=== PATIENT | female | born 1980 | race Caucasian/White ===

== ENCOUNTER 2018-01-24 16:07 | Emergency (ER) | payer OTHER ==
[~2018-01-24] VITALS: Ht 167.6 cm; Wt 64.9 kg
[~2018-01-24 16:07] MED LIST: ACETAMINOPHEN-1 EAC1 PO; ACYCLOVIR 200200 MG PO; ADVIL100 M2 PO; AMBIEN 5 MG TABL5 MG PO; AMOXICILLIN500 M1 PO; BACTRIM DS TAB1 EACH PO; BACTROBAN CREAM30 G1 TOP; BUTALB-APAP-CA1 EACH; CEPHALEXIN 500500 M1 PO; FIORICET 50-321 EACH PO; FLEXERIL PO; IBUPROFEN 200200 M1 PO; IBUPROFEN 800800 M1 PO; IMITREX 25 MG T25 M1 PO; IMITREX 25 MG T25 MG PO; IMITREX 50 MG T50 MG; KEFLEX500 MG PO; LAMICTAL150 MG PO; MEDROLDOSEPACK PO; MOBIC7.5 M1 PO; NAPROSYN500 MG PO; NORCO 10-325 T1 EACH; NORCO 5-325 TA1 EACH PO; NORTRIPTYLINE H10 M1 GT; PENICILLIN V P500 MG PO; PERCOCET 5-3251 EACH PO; PHENERGAN25 M1 RC; PHENERGAN50 MG PO; PREDNISONE50 MG PO; PRILOSEC 20 MG20 MG; PROTONIX 20 MG20 M1 PO; PROZAC 10 MG CA10 M1 PO; ROBAXIN 750 MG750 M1 PO; ROBAXIN500 MG PO; SEPTRA 80-4001 EACH PO; SYNTHROID50 MCG; TOPAMAX100 MG PO; TORADOL 10 MG T10 MG PO; TRAMADOL 50 MG50 MG PO; WELLBUTRIN XL300 MG PO; XANAX 0.25 MG0.25 MG; XANAX XR0.5 MG; ZANTAC 150MG T150 M1 PO; ZOFRAN ODT4 MG PO; ZOFRAN4 MG PO; ZOLOFT100 MG
[2018-01-24] MEDS ORDERED: VICODIN 5-3001 EACH PO (16:19)
[2018-01-24] MEDS ORDERED: TRAMADOL 50 MG50 MG PO (16:19)
[2018-01-24 17:22] VITALS: BP 98/52
== END 2018-01-24 17:24 | disposition home or self-care (01) ==
LOC: M.ERS 16:07
DX: M25.551 Pain in right hip (principal); K21.9 Gastro-esophageal reflux disease without esophagitis; G43.909 Migraine, unspecified, not intractable, without status migrainosus; F17.210 Nicotine dependence, cigarettes, uncomplicated; Z88.6 Allergy status to analgesic agent; Z88.5 Allergy status to narcotic agent; Z88.8 Allergy status to other drugs, medicaments and biological substances; Z90.49 Acquired absence of other specified parts of digestive tract

== ENCOUNTER 2018-05-04 19:02 | Emergency (ER) | payer OTHER ==
[~2018-05-04] VITALS: Ht 152.4 cm; Wt 66.7 kg
[~2018-05-04 19:02] MED LIST changes: +VICODIN 5-3001 EACH PO
[2018-05-04] MEDS ORDERED: IMITREX100 MG (19:11)
[2018-05-04 19:43] LABS: ABSOLUTE BASOPHILS 0.1 thou/uL (0.0-0.2); ABSOLUTE EOSINOPHILS 0.2 thou/uL (0.0-0.7); ABSOLUTE LYMPHOCYTES 2.8 thou/uL (0.8-5.3); ABSOLUTE MONOCYTES 0.6 thou/uL (0.0-1.2); ABSOLUTE NEUTROPHILS 4.2 thou/uL (1.6-8.1); BASOPHILS 0.7 %; EOSINOPHILS 2.2 %; HEMATOCRIT 38.6 % (37.0-47.0); HEMOGLOBIN 12.9 gm/dL (12.0-15.0); MCH 28.6 pg (26.0-34.0); MCHC 33.5 g/dL (28.0-37.0); MCV 85.4 fL (80.0-100.0); MONOCYTES 7.6 %; MPV 8.4 fl. (7.2-11.1); NUCLEATED RBCS 0 /100WBC; PLATELET COUNT* 289 thou/uL (150-400); POLYS 53.5 %; RBC 4.52 mil/uL (4.20-5.00); RDW-CV 14.1 % (10.5-14.5); WBC 7.8 thou/uL (4.0-11.0)
[2018-05-04 19:56] LABS: CALCIUM 8.6 mg/dL (8.5-10.1); CREATININE 0.8 mg/dL (0.6-1.3); POTASSIUM 3.6 mmol/L (3.5-5.1)
[2018-05-04 20:01] LABS: TOTAL BILIRUBIN 0.2 mg/dL (<0.1-1.0); TOTAL PROTEIN 7.6 g/dL (6.4-8.2)
[2018-05-04 20:03] LABS: URINE BILIRUBIN NEGATIVE (Negative); URINE BLOOD 3+ (Negative); URINE CLARITY CLEAR; URINE COLOR YELLOW; URINE GLUCOSE-RANDOM NEGATIVE (Negative); URINE KETONES NEGATIVE (Negative); URINE LEUKOCYTES-REFLEX NEGATIVE (Negative); URINE NITRITE-REFLEX NEGATIVE (Negative); URINE PROTEIN NEGATIVE (Negative); URINE UROBILINOGEN 0.2 E.U./dl (0.2-1.0)
[2018-05-04 20:11] LABS: CASTS None Seen /LPF (None Seen); MUCUS None Seen strn/LPF (None Seen); SQUAMOUS 0-3 Few /LPF (0-3)
[2018-05-04 20:12] LABS: BACTERIA-REFLEX None Seen /HPF (None Seen); CRYSTALS None Seen /LPF (None Seen); URINE WBC-REFLEX None Seen /HPF (0-5)
[2018-05-04] MEDS ORDERED: ZOFRAN ODT4 MG PO (20:58)
[2018-05-04 21:07] VITALS: BP 115/47
== END 2018-05-04 21:07 | disposition home or self-care (01) ==
LOC: M.ERS 19:02
PROVIDERS: Physician Assistant
DX: R10.31 Right lower quadrant pain (principal); R11.2 Nausea with vomiting, unspecified; K21.9 Gastro-esophageal reflux disease without esophagitis; Z90.49 Acquired absence of other specified parts of digestive tract; G43.909 Migraine, unspecified, not intractable, without status migrainosus; F17.210 Nicotine dependence, cigarettes, uncomplicated; Z88.5 Allergy status to narcotic agent; Z88.8 Allergy status to other drugs, medicaments and biological substances

== ENCOUNTER 2018-05-14 20:30 | Emergency (ER) | payer OTHER ==
[~2018-05-14] VITALS: Ht 167.6 cm; Wt 65.8 kg
[~2018-05-14 20:30] MED LIST changes: +IMITREX100 MG
[2018-05-14 22:23] VITALS: BP 115/64
== END 2018-05-14 22:24 | disposition home or self-care (01) ==
LOC: M.ERS 20:30
DX: K59.00 Constipation, unspecified (principal); K21.9 Gastro-esophageal reflux disease without esophagitis; G43.909 Migraine, unspecified, not intractable, without status migrainosus; Z90.49 Acquired absence of other specified parts of digestive tract

== ENCOUNTER 2018-10-08 17:35 | Emergency (ER) | payer OTHER ==
[~2018-10-08] VITALS: Ht 167.6 cm; Wt 65.8 kg
[2018-10-08] MEDS ORDERED: AMOXICILLIN 50500 MG PO (18:30)
[2018-10-08] MEDS ORDERED: NYSTATIN100000 UNI SW&SWALLOW (18:31)
[2018-10-08 18:45] VITALS: BP 110/70
== END 2018-10-08 18:46 | disposition home or self-care (01) ==
LOC: M.ERS 17:35
DX: J02.9 Acute pharyngitis, unspecified (principal); K21.9 Gastro-esophageal reflux disease without esophagitis; G43.909 Migraine, unspecified, not intractable, without status migrainosus; F17.210 Nicotine dependence, cigarettes, uncomplicated; Z88.6 Allergy status to analgesic agent; Z88.5 Allergy status to narcotic agent; Z90.49 Acquired absence of other specified parts of digestive tract; Z98.890 Other specified postprocedural states

== ENCOUNTER 2019-02-17 18:32 | Emergency (ER) | payer OTHER ==
[~2019-02-17] VITALS: Ht 167.6 cm; Wt 65.8 kg
[~2019-02-17 18:32] MED LIST changes: +AMOXICILLIN 50500 MG PO; +NYSTATIN100000 UNI SW&SWALLOW
[2019-02-17 18:57] LABS: URINE BILIRUBIN NEGATIVE (Negative); URINE BLOOD NEGATIVE (Negative); URINE CLARITY CLEAR; URINE COLOR YELLOW; URINE GLUCOSE-RANDOM NEGATIVE (Negative); URINE KETONES NEGATIVE (Negative); URINE LEUKOCYTES-REFLEX NEGATIVE (Negative); URINE NITRITE-REFLEX NEGATIVE (Negative); URINE PROTEIN NEGATIVE (Negative); URINE SPECIFIC GRAVITY <= 1.005 (1.005-1.030); URINE UROBILINOGEN 0.2 E.U./dl (0.2-1.0)
[2019-02-17 19:16] LABS: ABSOLUTE BASOPHILS 0.1 thou/uL (0.0-0.2); ABSOLUTE EOSINOPHILS 0.1 thou/uL (0.0-0.7); ABSOLUTE LYMPHOCYTES 2.9 thou/uL (0.8-5.3); ABSOLUTE MONOCYTES 0.8 thou/uL (0.0-1.2); ABSOLUTE NEUTROPHILS 5.1 thou/uL (1.6-8.1); BASOPHILS 0.7 %; EOSINOPHILS 1.2 %; HEMOGLOBIN 12.9 gm/dL (12.0-15.0); LYMPHOCYTES 32.6 %; MCH 28.1 pg (26.0-34.0); MCV 82.7 fL (80.0-100.0); MONOCYTES 9.2 %; MPV 8.7 fl. (7.2-11.1); NUCLEATED RBCS 0 /100WBC; PLATELET COUNT* 271 thou/uL (150-400); POLYS 56.3 %; RDW-CV 14.2 % (10.5-14.5)
[2019-02-17 19:23] LABS: CALCIUM 8.7 mg/dL (8.5-10.1); CREATININE 0.8 mg/dL (0.6-1.3); POTASSIUM 3.2 mmol/L (3.5-5.1)
[2019-02-17 19:27] LABS: ALBUMIN 3.9 g/dL (3.4-5.0); TOTAL BILIRUBIN 0.2 mg/dL (<0.1-1.0); TOTAL PROTEIN 7.7 g/dL (6.4-8.2)
[2019-02-17 20:50] VITALS: BP 109/81
== END 2019-02-17 20:51 | disposition home or self-care (01) ==
LOC: M.ERS 18:32
PROVIDERS: Nurse Practitioner Family
DX: E87.6 Hypokalemia (principal); R11.2 Nausea with vomiting, unspecified; R19.7 Diarrhea, unspecified; R07.81 Pleurodynia; K21.9 Gastro-esophageal reflux disease without esophagitis; G43.909 Migraine, unspecified, not intractable, without status migrainosus; F17.210 Nicotine dependence, cigarettes, uncomplicated; Z88.5 Allergy status to narcotic agent; Z88.8 Allergy status to other drugs, medicaments and biological substances; Z88.6 Allergy status to analgesic agent; Z90.49 Acquired absence of other specified parts of digestive tract; Z98.51 Tubal ligation status

== ENCOUNTER 2019-03-23 18:26 | Emergency (ER) | payer OTHER ==
[~2019-03-23] VITALS: Ht 170.2 cm; Wt 70.3 kg
[2019-03-23] MEDS ORDERED: BUTALB-APAP-CA1 EACH PO (19:40)
[2019-03-23 19:45] VITALS: BP 108/62
== END 2019-03-23 19:45 | disposition home or self-care (01) ==
LOC: M.ERS 18:26
DX: S06.0X0A Concussion without loss of consciousness, initial encounter (principal); K21.9 Gastro-esophageal reflux disease without esophagitis; G43.909 Migraine, unspecified, not intractable, without status migrainosus; F17.210 Nicotine dependence, cigarettes, uncomplicated; Z98.51 Tubal ligation status; Z90.49 Acquired absence of other specified parts of digestive tract; Z88.6 Allergy status to analgesic agent; W22.8XXA Striking against or struck by other objects, initial encounter; Y93.E8 Activity, other personal hygiene; Y92.89 Other specified places as the place of occurrence of the external cause; Y99.0 Civilian activity done for income or pay

== ENCOUNTER 2020-03-25 10:54 | Emergency (ER) | payer OTHER ==
[~2020-03-25] VITALS: Ht 167.6 cm; Wt 67.1 kg
[~2020-03-25 10:54] MED LIST changes: +BUTALB-APAP-CA1 EACH PO
[2020-03-25] MEDS ORDERED: WELLBUTRIN 75 M75 M1 PO (11:04)
[2020-03-25] MEDS ORDERED: NORCO 5-325 TA1 EAC2 PO (12:33)
[2020-03-25 12:41] VITALS: BP 116/68
== END 2020-03-25 12:42 | disposition home or self-care (01) ==
LOC: M.ERS 10:54
DX: S20.212A Contusion of left front wall of thorax, initial encounter (principal); K21.9 Gastro-esophageal reflux disease without esophagitis; G43.909 Migraine, unspecified, not intractable, without status migrainosus; F17.210 Nicotine dependence, cigarettes, uncomplicated; Z90.49 Acquired absence of other specified parts of digestive tract; Z88.5 Allergy status to narcotic agent; Z98.51 Tubal ligation status; W10.8XXA Fall (on) (from) other stairs and steps, initial encounter; Y93.89 Activity, other specified; Y92.89 Other specified places as the place of occurrence of the external cause; Y99.8 Other external cause status

== ENCOUNTER 2020-05-12 19:06 | Emergency (ER) | payer OTHER ==
[~2020-05-12] VITALS: Ht 170.2 cm; Wt 65.8 kg
[~2020-05-12 19:06] MED LIST changes: +NORCO 5-325 TA1 EAC2 PO; +WELLBUTRIN 75 M75 M1 PO
[2020-05-12] MEDS ORDERED: BOTOX100 UNIT IM (19:20)
[2020-05-12] MEDS ORDERED: TREXIMET 85-501 EACH PO (19:21)
[2020-05-12 19:46] LABS: ABSOLUTE EOSINOPHILS 0.1 thou/uL (0.0-0.7); ABSOLUTE LYMPHOCYTES 2.6 thou/uL (0.8-5.3); ABSOLUTE MONOCYTES 0.4 thou/uL (0.0-1.2); ABSOLUTE NEUTROPHILS 5.4 thou/uL (1.6-8.1); BASOPHILS 0.6 %; EOSINOPHILS 1.5 %; HEMATOCRIT 42.1 % (37.0-47.0); HEMOGLOBIN 13.9 gm/dL (12.0-15.0); LYMPHOCYTES 30.1 %; MCH 28.3 pg (26.0-34.0); MCHC 33.1 g/dL (28.0-37.0); MCV 85.3 fL (80.0-100.0); MONOCYTES 4.8 %; MPV 8.8 fl. (7.2-11.1); NUCLEATED RBCS 0 /100WBC; PLATELET COUNT* 286 thou/uL (150-400); RBC 4.93 mil/uL (4.20-5.00); RDW-CV 14.7 % (10.5-14.5); WBC 8.5 thou/uL (4.0-11.0)
[2020-05-12 19:57] LABS: CALCIUM 8.7 mg/dL (8.5-10.1); POTASSIUM 3.4 mmol/L (3.5-5.1)
[2020-05-12 20:02] LABS: APTT 24.4 Seconds (25.0-31.3); INR 1.1; PROTIME 10.9 Seconds (9.20-11.50)
[2020-05-12 20:11] LABS: ALBUMIN 3.9 g/dL (3.4-5.0); CK-MB MASS 0.8 ng/mL (<0.5-3.6); MAGNESIUM 2.1 mg/dL (1.8-2.4); TOTAL BILIRUBIN 0.3 mg/dL (<0.1-1.0); TOTAL PROTEIN 7.8 g/dL (6.4-8.2)
[2020-05-12] MEDS ORDERED: NORCO 5-325 TA1 EAC2 PO (20:16)
[2020-05-12 20:30] VITALS: BP 130/55
--- NOTE | 2020-05-13 12:14 | EKG ---
[place] [address] ELECTROCARDIOGRAM REPORT Name: SVENDEDRICK MONTANO Room: [facility]#: [id number] Admission: 05/12/20 Attend Phys: Discharge: 05/12/20 Date of : 78 Date of Service: 05/12/201911 Report #: [id number] THIS REPORT FOR: //name// [facility] ED Test Date: 2020-05-12 Test Time: 19:12:38 Pat Name: DEDRICK MACHUCA Department: Room: Gender: F [employer]: : 1980 Requested By: Carlos Cruz Order Number: [id number] MD: Chilango Jaime Measurements Intervals Proctor Rate: 80 P: 72 MD: 155 QRS: 80 QRSD: 94 T: 32 QT: 373 QTc: 431 Interpretive Statements Sinus rhythm Compared to ECG 09/01/2012 15:14:04 No significant changes Electronically Signed On 05-13-2020 12:14:22 CDT by Chilango Jaime [email or web address] <ELECTRONICALLY SIGNED> By: Sandy Jaime MD, [facility] 10/1213 11 11 Sandy Jaime MD, [facility] /EPI
== END 2020-05-12 20:32 | disposition home or self-care (01) ==
LOC: M.ERS 19:06
PROVIDERS: Family Medicine
DX: R07.9 Chest pain, unspecified (principal); R11.0 Nausea; R42 Dizziness and giddiness; G43.909 Migraine, unspecified, not intractable, without status migrainosus; F17.210 Nicotine dependence, cigarettes, uncomplicated; Z98.51 Tubal ligation status; Z88.6 Allergy status to analgesic agent; Z88.8 Allergy status to other drugs, medicaments and biological substances; Z90.49 Acquired absence of other specified parts of digestive tract

== ENCOUNTER 2020-11-20 19:17 | Emergency (ER) | payer OTHER ==
[~2020-11-20] VITALS: Ht 167.6 cm; Wt 69.4 kg
[~2020-11-20 19:17] MED LIST changes: +BOTOX100 UNIT IM; +TREXIMET 85-501 EACH PO
[2020-11-20] MEDS ORDERED: TOPROL XL25 MG PO (19:54)
[2020-11-20 20:57] VITALS: BP 102/55
== END 2020-11-20 20:57 | disposition left against medical advice (07) ==
LOC: M.ERS 19:17
DX: Z53.21 Procedure and treatment not carried out due to patient leaving prior to being seen by health care provider (principal)

== ENCOUNTER 2021-01-20 09:31 | Emergency (ER) | payer OTHER ==
[~2021-01-20] VITALS: Ht 167.6 cm; Wt 69.4 kg
[~2021-01-20 09:31] MED LIST changes: +TOPROL XL25 MG PO
[2021-01-20] MEDS ORDERED: KAPSPARGO SPRIN25 MG PO (09:40)
[2021-01-20] MEDS ORDERED: HYDROCODON-ACE1 EAC7 PO (10:48)
[2021-01-20 10:55] VITALS: BP 119/48
== END 2021-01-20 10:56 | disposition home or self-care (01) ==
LOC: M.ERS 09:31
DX: S93.492A Sprain of other ligament of left ankle, initial encounter (principal); K21.9 Gastro-esophageal reflux disease without esophagitis; G43.909 Migraine, unspecified, not intractable, without status migrainosus; F17.210 Nicotine dependence, cigarettes, uncomplicated; Z88.5 Allergy status to narcotic agent; Z88.6 Allergy status to analgesic agent; Z90.49 Acquired absence of other specified parts of digestive tract; Z98.51 Tubal ligation status; X50.1XXA Overexertion from prolonged static or awkward postures, initial encounter; Y93.89 Activity, other specified; Y92.89 Other specified places as the place of occurrence of the external cause; Y99.8 Other external cause status

== ENCOUNTER 2021-02-04 12:49 | Emergency (ER) | payer OTHER ==
[~2021-02-04] VITALS: Ht 170.2 cm; Wt 68.5 kg
[~2021-02-04 12:49] MED LIST changes: +HYDROCODON-ACE1 EAC7 PO; +KAPSPARGO SPRIN25 MG PO
[2021-02-04] MEDS ORDERED: TRAMADOL 50 MG50 MG PO (13:09)
[2021-02-04] MEDS ORDERED: HYDROCODON-ACE1 EAC7 PO (13:45)
[2021-02-04] MEDS ORDERED: PREDNISONE 20 M20 M1 PO (13:45)
[2021-02-04] MEDS ORDERED: FLEXERIL PO (13:45)
[2021-02-04 13:51] VITALS: BP 122/68
== END 2021-02-04 13:52 | disposition home or self-care (01) ==
LOC: M.ERS 12:49
DX: M54.5 Low back pain (principal); K21.9 Gastro-esophageal reflux disease without esophagitis; G43.909 Migraine, unspecified, not intractable, without status migrainosus; F17.210 Nicotine dependence, cigarettes, uncomplicated; Z88.5 Allergy status to narcotic agent; Z88.8 Allergy status to other drugs, medicaments and biological substances; Z90.49 Acquired absence of other specified parts of digestive tract; Z98.51 Tubal ligation status

== ENCOUNTER 2021-04-05 16:46 | Emergency (ER) | payer OTHER ==
[~2021-04-05] VITALS: Ht 170.2 cm; Wt 70.8 kg
[~2021-04-05 16:46] MED LIST changes: +PREDNISONE 20 M20 M1 PO
[2021-04-05] MEDS ORDERED: IMITREX 25 MG T25 M1 PO (16:59)
[2021-04-05] MEDS ORDERED: COMPAZINE5 M1 PO (17:14)
[2021-04-05] MEDS ORDERED: ONDANSETRON ODT4 MG PO (17:14)
[2021-04-05 17:32] VITALS: BP 99/53
== END 2021-04-05 17:32 | disposition home or self-care (01) ==
LOC: M.ERS 16:46
DX: G43.909 Migraine, unspecified, not intractable, without status migrainosus (principal); K21.9 Gastro-esophageal reflux disease without esophagitis; F17.210 Nicotine dependence, cigarettes, uncomplicated; Z90.49 Acquired absence of other specified parts of digestive tract; Z98.51 Tubal ligation status; Z79.899 Other long term (current) drug therapy; Z88.8 Allergy status to other drugs, medicaments and biological substances; Z88.6 Allergy status to analgesic agent; Z88.5 Allergy status to narcotic agent